=== PATIENT | female | born 1975 | race Caucasian/White ===

== ENCOUNTER → 2016-06-24 | Day surgery (SDC) | payer OTHER ==
[~2016-06-24] VITALS: Ht 160 cm; Wt 61.7 kg
[~2016-06-24] MED LIST: AMOXICILLIN500 M2 PO; AMOXIL500 MG PO; BACTRIM DS 8001 TAB PO; BACTRIM DS TAB1 EACH PO; CLEOCIN HCL300 MG PO
--- NOTE | 2016-06-24 14:14 | Operative Report ---
Operative/Inv Procedure Report Surgery Date: 06/24/16 Name of Procedure: Marsupialization of Right Bartholin Gland abscess Pre-Operative Diagnosis: Abscess RT Bartholin Gland Post-Operative Diagnosis: Abscess RT Bartholin Gland Estimated Blood Loss: scant Surgeon/Russian Language Professor: RICHARD CHENEY,MARJORIE Braswell Anesthesia: laryngeal mask airway Monitors: EKG electrode, blood pressure cuff, pulse oximeter IV Fluids: 550 ML crystalloid Implants: None Urine Output: No catheterization, not measured Drains: None Specimens: None Microbiology: None Tourniquet: None Complications: None Condition: Good Operative Indication: Recurrent right Bartholin's gland abscess Operative/Procedure Note Note: Patient was brought to the operating room, placed on the OR table in the dorsal supine position. Timeout was discussed by the team and agreed upon. Patient was given IV sedation and LMA was placed. After good evidence of adequate anesthesia, patient was placed in dorsal lithotomy position utilizing pneumatic compression boots on her her lower extremities, employing candycane stirrups. Perineum was prepped and draped in the usual sterile fashion. Examination under anesthesia revealed a prominent right Bartholin's gland abscess with significant erythema extension into the surrounding tissue. No evidence of any woody induration of the skin. The area of the incision for the marsupialization was infiltrated with half percent Marcaine with epinephrine. A 1.5 inch incision was made in the skin, in the area of the margin of the right labium minora, releasing 30 ML's of purulent material. There was no odor to the purulent material. Loculations within the abscess cavity were taken down with blunt dissection. The area of the abscess cavity and surrounding tissue was copiously irrigated, and the irrigation fluid was aspirated. Marsupialization was performed utilizing both 3-0 Vicryl and 4-0 Monocryl interrupted suture, utilizing horizontal mattress stitch- care was taken to bring the edge of the incised Bartholin's gland mucosa to the surrounding skin tissue with the interrupted sutures. Packing with quarter inch iodoform was then placed within the gland itself, to ensure appropriate drainage. Good hemostasis was noted. No evidence of hematoma formation. The surrounding skin had much less erythema at the end of the procedure. Good hemostasis continued. Patient was returned to the dorsal supine position after placement of bacitracin ointment over the incision and a perineal pad was also utilized as part of the dressing. Sponge instrument and needle counts were correct 2. Patient was awakened from anesthesia and taken to recovery room in good condition. Findings: Right Bartholin's gland abscess which contained 30 mL of purulent material. All loculations within the abscess cavity were taken down. Abscess cavity and surrounding tissue was copiously irrigated and the fluid was aspirated. The edges of the incised Bartholin's gland were carefully brought to the surrounding perineal skin and affixed with interrupted horizontal mattress sutures. Quarter -inch iodoform packing was utilized to keep the incised gland area open for drainage good hemostasis was noted throughout the procedure and at the end of the procedure. Bacitracin was applied to the surgical site at the end of the procedure. Discharge Disposition: Same Day Admissions CC: JUS CHENEY,DAVID Wilkinson
== END ==
LOC: STS 03:13
DX: N75.1 Abscess of Bartholin's gland (principal)
CPT/HCPCS: 81025; J2250